=== PATIENT | male | born 1960 | race Caucasian/White ===

== ENCOUNTER 2020-12-15 06:24 | Day surgery (SDC) | payer BC ==
[2020-12-15] MEDS ORDERED: propofoL 50 ML ONE (07:26)
[2020-12-15] MEDS ORDERED: fentaNYL 100 MCG/2 ML SDV ONE (07:28)
--- NOTE | 2020-12-15 07:37 | PCM.PREANE ---
Preanesthetic Assessment - Anesthesia/Transfusion/Family Hx Anesthesia History: Prior Anesthesia Without Reaction Family History of Anesthesia Reaction: No Transfusion History: No Prior Transfusion(s) - Review of Systems General: No Symptoms Pulmonary: No Symptoms Cardiovascular: No Symptoms Gastrointestinal: No Symptoms Neurological: No Symptoms Other: Reports: None - Physical Assessment NPO Status Date: 12/15/20 NPO Status Time: 00:00 Vital Signs: Last Vital Signs Temp 97.5 F 12/15/20 06:39 Pulse 82 12/15/20 06:39 Resp 16 12/15/20 06:39 BP 122/71 12/15/20 06:39 Pulse Ox 96 12/15/20 06:39 Height: 5 ft 10 in Weight: 185 lb ASA Class: 3 Mental Status: Alert & Oriented x3 Dentition: Reports: Normal Dentition Thyro-Mental Finger Breadths: 3 Mouth Opening Finger Breadths: 3 ROM/Head Extension: Full Lungs: Clear to Auscultation, Normal Respiratory Effort Cardiovascular: Regular Rate, Regular Rhythm - Lab Values: Laboratory Last Values SARS-CoV-2 RNA (BRYAN) NEGATIVE (NEGATIVE) 12/15/20 06:10 - Allergies Allergies/Adverse Reactions: Allergies Allergy/AdvReac Type Severity Reaction Status Date / Time azithromycin [From Zithromax] Allergy Nausea Verified 12/11/20 09:13 - Acknowledgements Anesthesia Type Planned: General Anesthesia Pt an Appropriate Candidate for the Planned Anesthesia: Yes Alternatives and Risks of Anesthesia Discussed w Pt/Guardian: Yes Pt/Guardian Understands and Agrees with Anesthesia Plan: Yes PreAnesthesia Questionnaire HEENT History: Reports: Other (See Below) Other HEENT History: wears glasses, "blepharospasms" Cardiovascular History: Reports: High Cholesterol Respiratory History: Reports: Sleep Apnea Other Respiratory History: does not use a CPAP Gastrointestinal History: Reports: Other (See Below) Other Gastrointestinal History: hx diverticulitis Genitourinary History: Reports: Renal Calculus Musculoskeletal History: Reports: Fracture Other Musculoskeletal History: hx fx hip at 3 yrs old Neurological History: Reports: Other (See Below) Other Neuro History: 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 Psychiatric History: Reports: None Endocrine/Metabolic History: Reports: None Hematologic History: Reports: None Immunologic History: Reports: None Oncologic (Cancer) History: Reports: None Dermatologic History: Reports: None - Past Surgical History Head Surgeries/Procedures: Reports: None HEENT Surgical History: Reports: Cataract Surgery Cardiovascular Surgical History: Reports: None Respiratory Surgical History: Reports: None GI Surgical History: Reports: Colonoscopy, Hernia, Inguinal Male Surgical History: Reports: Kidney Stone Extraction Endocrine Surgical History: Reports: None Neurological Surgical History: Reports: None Musculoskeletal Surgical History: Reports: Carpal Tunnel Oncologic Surgical History: Reports: None Dermatological Surgical History: Reports: None - SUBSTANCE USE Tobacco Use Status *Q: Never Tobacco User - HOME MEDS Home Medications: Home Meds Aspirin [Adult Aspirin Regimen] 81 mg PO DAILY 12/11/20 [History] Multivit-Minerals/FA/Lycopene [One Daily Tablet] 1 tab PO DAILY 12/11/20 [History] Simvastatin 20 mg PO DAILY 12/11/20 [History] valACYclovir HCl [Valtrex] 1 tab PO ASDIRECTED PRN 12/11/20 [History] - CURRENT (IN HOUSE) MEDS Current Meds: Current Medications Lactated Ringer's (Ringers, Lactated) 1,000 mls @ 125 mls/hr IV ASDIRECTED FAMILIA Discontinued Medications Fentanyl (Fentanyl 100 Mcg/2 Ml Sdv) Confirm Administered Dose 100 mcg .ROUTE .STK-MED ONE Stop: 12/15/20 07:29 Propofol (Diprivan 50 Ml) Confirm Administered Dose 50 mls @ as directed .ROUTE .STK-MED ONE Stop: 12/15/20 07:27 Lidocaine HCl (Lidocaine 1% 5 Ml Sdv) Confirm Administered Dose 5 ml .ROUTE .STK-MED ONE Stop: 12/15/20 07:29
[2020-12-15] MEDS ORDERED: Sodium Chloride 0.9% 20 ML ONE (08:12)
[2020-12-15] MEDS ORDERED: ePHEDrine 50 MG/ML SDV ONE (08:12)
--- NOTE | 2020-12-15 08:33 | PCM.OPNOTE ---
- General Post-Op/Procedure Note Date of Surgery/Procedure: 12/15/20 Operative Procedure(s): colonoscopy. random biopsies Findings: Scant diverticulosis dictation number [id number] Pre Op Diagnosis: History of diverticulitis Post-Op Diagnosis: Scant diverticulosis Anesthesia Technique: [facility] [place] Primary Surgeon: Jasbir Wiggins Pathology: Random biopsies of descending and sigmoid and rectum. Complications: None Condition: Good
--- NOTE | 2020-12-15 08:52 | PCM.POSTAN ---
POST ANESTHESIA ASSESSMENT - MENTAL STATUS Mental Status: Alert, Oriented - VITAL SIGNS Vital Signs: Last Vital Signs Temp 97.2 F 12/15/20 08:28 Pulse 82 12/15/20 08:43 Resp 20 12/15/20 08:43 BP 92/55 L 12/15/20 08:43 Pulse Ox 95 12/15/20 08:43 - RESPIRATORY Respiratory Status: Respiratory Rate WNL, Airway Patent, O2 Saturation Stable - CARDIOVASCULAR CV Status: Pulse Rate WNL, Blood Pressure Stable - GASTROINTESTINAL GI Status: No Symptoms - POST OP HYDRATION Hydration Status: Adequate & Stable
--- NOTE | 2020-12-15 08:53 | PCM48HPAN ---
Post Anesthesia Note - EVALUATION WITHIN 48HRS OF ANESTHETIC Vital Signs in Normal Range: Yes Patient Participated in Evaluation: Yes Respiratory Function Stable: Yes Airway Patent: Yes Cardiovascular Function Stable: Yes Hydration Status Stable: Yes Pain Control Satisfactory: Yes Nausea and Vomiting Control Satisfactory: Yes Mental Status Recovered: Yes Vital Signs: Last Vital Signs Temp 97.2 F 12/15/20 08:28 Pulse 82 12/15/20 08:43 Resp 20 12/15/20 08:43 BP 92/55 L 12/15/20 08:43 Pulse Ox 95 12/15/20 08:43
[2020-12-15] MEDS ORDERED: Lactated Ringers 1,000 ML IV SCH (10:45)
--- NOTE | 2020-12-15 14:23 | OR ---
SURGEON: HIEN ORTIZ MD DATE OF PROCEDURE: 12/15/2020 PREOPERATIVE DIAGNOSES: 1. History of diverticulitis. POSTOPERATIVE DIAGNOSES: 1. Scant diverticulosis. ANESTHESIA: With Anesthesiology. PRIMARY SURGEON: Hien Ortiz MD PROCEDURES PERFORMED: 1. Colonoscopy. 2. Random cold biopsies from the descending colon, sigmoid, and rectum. EXTENT OF THE COLONOSCOPY: To the cecum. BOWEL PREP: Excellent. LIMITATIONS: None. REASON FOR PROCEDURE: Patient is a pleasant 60-year-old gentleman who had his first attack of diverticulitis back in 2015. At that time, he had a CT scan which showed thickening in the mid sigmoid colon and inflamed diverticulum. The patient says he has had episodes like every once in a while, but this summer, he seems to have had just one long episode, treated multiple times with antibiotics. Currently, the patient says he has been feeling good. He has had no complaints since I saw him last a couple of weeks ago. The patient does have family history of Crohn disease. He denies any family history of colon cancer. He says his last colonoscopy was in 2015 and was normal. PROCEDURE IN DETAIL: Physical examination was performed. The major risks and benefits associated with the procedure were explained to the patient in detail. The patient verbalized understanding and agreement with the same. The patient was then connected to appropriate monitoring device and IV started. EKG, pulse, pulse oximetry, blood pressure, and capnography were monitored throughout the entire procedure. Continuous oxygen and sedation were provided by the anesthesiologist. Patient was placed in left lateral decubitus position. Sedation was began. After adequate sedation had been achieved, a digital rectal exam was performed. No rectal masses or polyps were felt. He did have some external hemorrhoidal skin tissue. Now, a well-lubricated Olympus colonoscope was inserted into the rectum and advanced under direct visualization to the level of the cecum. The cecum was identified by both visual and anatomic landmarks. Photographs were taken of the cecal cap. The terminal ileum was also intubated. The scope was then slowly withdrawn in somewhat circular fashion looking at the color, texture, anatomy, and integrity of mucosa from the cecum pink to the anal canal. The patient had excellent bowel prep with just very minimal residual prep that was suctioned and irrigated out. I did get an excellent look at the mucosa. The patient had just some very minimal scant small diverticula scattered throughout descending and sigmoid colon. In the distal sigmoid at about 20 cm, I did have some more prominent folds. I did try to look into each fold, but did not see any diverticulosis, but one could be easily hidden in the deep folds. Since the diverticulosis were so minimal in number and size, I did go back up to the descending colon and take some random cold biopsies throughout the descending, sigmoid, and the rectum. Scope was retroflexed in the rectum. Again, he had some hyperplastic papilla. Scope was completely removed and the procedure was terminated. ENDOSCOPIC DIAGNOSIS: Scant diverticulosis. RECOMMENDATIONS: The patient will follow up in clinic to go over pathology. His next colonoscopy should be in 10 years; sooner if he develops signs or symptoms such as change in bowel habits or blood in his stool. MARU JOSEPH /[id number] MTDD
== END 2020-12-15 09:11 | disposition home or self-care (01) ==
LOC: MW.SDS 06:24
PROVIDERS: ATTEND Surgery
DX: Z12.11 Encounter for screening for malignant neoplasm of colon (principal); K57.30 Diverticulosis of large intestine without perforation or abscess without bleeding; K64.4 Residual hemorrhoidal skin tags; E78.00 Pure hypercholesterolemia, unspecified; G47.30 Sleep apnea, unspecified; Z01.812 Encounter for preprocedural laboratory examination; Z20.822 Contact with and (suspected) exposure to COVID-19; Z87.19 Personal history of other diseases of the digestive system; Z98.890 Other specified postprocedural states; Z79.82 Long term (current) use of aspirin; Z79.899 Other long term (current) drug therapy; Z88.1 Allergy status to other antibiotic agents; Z82.49 Family history of ischemic heart disease and other diseases of the circulatory system
CPT/HCPCS: 45380; 87635; 88305; J2704; J3010; 00812; U0002